=== PATIENT | female | born 1960 | race African-American/Black ===

== ENCOUNTER 2016-05-31 17:44 | Emergency (ER) | payer OTHER ==
[~2016-05-31] VITALS: Ht 167.6 cm; Wt 147.4 kg
[~2016-05-31 17:44] MED LIST: ASPIR 8181 MG PO; COZAAR50 MG ORAL; COZAAR50 MG PO; GLUCOPHAGE500 MG PO; HYDROCHLOROTHIA25 MG PO; IBUPROFEN600 MG PO; NORVASC5 MG PO; TYLENOL EXTRA500 MG ORAL
--- NOTE | 2016-05-31 18:23 | Emergency Room Report ---
History of Present Illness General Chief Complaint: Hypertension Source: Patient Present Illness HPI 28-year-old female complains of headache x3 days. States the pain is worse with muscle tension and upper shoulders that radiates up to her left side of her head it's worse with elevated blood pressure. Patient describes the pain as a crampy pressure-like sensation on the left side of her head with no photophobia photophobia blurry vision dizziness nausea or vomiting. States pain is also provoked by laying down at night. Since she has a history of high blood pressure that is normally well controlled with verapamil 240 taken once a day and hydrocortisone 25 mg. States she has an appointment with her primary care provider tomorrow morning. Allergies: Coded Allergies: IBUPROFEN (Unverified Adverse Reaction, HALLUCINATIONS, 08/03/12) Patient History Now: No Nursing Documentation-[facility] Past Medical History: No History, Except For Hx Hypertension: Yes Hx Diabetes: Yes - "borderline" Physical Exam Vital Signs Date Time Temp Pulse Resp B/P Pulse Ox O2 Delivery O2 Flow Rate FiO2 05/31/16 17:52 98.1 83 15 151/84 98 Room Air Sp02 EP Interpretation: reviewed, normal General Appearance: no apparent distress, alert, GCS 15, non-toxic Head: normocephalic, atraumatic Eyes: bilateral eye EOMI, bilateral eye PERRL, bilateral eye normal inspection ENT: hearing grossly normal, normal pharynx, no angioedema, normal voice, TMs + canals normal, uvula midline Neck: full range of motion, no bony tend, no carotid bruits, supple/symm/no masses Respiratory: chest non-tender, lungs clear, normal breath sounds, speaking full sentences Cardiovascular #1: regular rate, rhythm, no edema, no murmur, no rub, normal capillary refill Cardiovascular #2: 2+ carotid (R), 2+ carotid (L), 2+ radial (R), 2+ radial (L) , 2+ dorsalis pedis (R), 2+ dorsalis pedis (L) Musculoskeletal: back normal, digits/nails normal, gait/station normal, normal range of motion, non-tender, calf tenderness Neurologic: alert, oriented x3, responsive, 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 Tolbert is my supervising physician with whom patient management has been discussed with. Diagnostic Impression: Primary Impression: Episodic tension type headache Qualified Codes: G44.219 - Episodic tension-type headache, not intractable Additional Impression: Hypertension Qualified Codes: I10 - Essential (primary) hypertension ER Course Pt. presents to the ED c/o elevated BP and Headache Ddx considered but are not limited to Tension KRAFT, Migraine, Stroke, Meningitis, Subarachnoid Hemorrhage Vital signs: are WNL, pt. is afebrile H&PE are most consistent with Tension KRAFT ORDERS: none required at this time, the diagnosis is clinical ED INTERVENTIONS: None required at this time. DISCHARGE: At this time pt. is stable for d/c to home. Will provide printed patient care instructions, and any necessary prescriptions. Care plan and follow up instructions have been discussed with the patient prior to discharge. Last Vital Signs Date Time Temp Pulse Resp B/P Pulse Ox O2 Delivery O2 Flow Rate FiO2 05/31/16 18:01 83 15 Room Air 05/31/16 17:52 98.1 151/84 98 Disposition: HOME, SELF-CARE Condition: Stable Scripts Cyclobenzaprine Hcl* (FLEXERIL*) 10 Mg Tablet 10 MG ORAL QHS for 10 Days, #10 TAB Prov: SABBEL,TAMEEM P.A. 05/31/16 Naproxen* (NAPROSYN*) 500 Mg Tablet 500 MG ORAL TWICE A DAY for 10 Days, #20 TAB Prov: SABRY,TAMEEM P.A. 05/31/16 SABRY,TAMEEM P.A. May 31, 2016 18:23
[2016-05-31] MEDS ORDERED: NAPROSYN500 M1 ORAL (18:27)
[2016-05-31] MEDS ORDERED: CYCLOBENZAPRINE10 MG ORAL (18:27)
[2016-05-31 21:12] VITALS: BP 163/77
== END 2016-05-31 18:35 | disposition home or self-care (01) ==
LOC: EMR 18:25
DX: G44.219 Episodic tension-type headache, not intractable (principal); I10 Essential (primary) hypertension; R73.03 Prediabetes
CPT/HCPCS: 99282

== ENCOUNTER 2016-09-02 08:55 | Emergency (ER) | payer OTHER ==
[~2016-09-02] VITALS: Ht 167.6 cm; Wt 149.7 kg
[~2016-09-02 08:55] MED LIST changes: +CYCLOBENZAPRINE10 MG ORAL; +NAPROSYN500 M1 ORAL
--- NOTE | 2016-09-02 10:27 | Diagnostic Imaging Report ---
Indication: COUGH Technique: One view of the chest Comparison: 07/06/2012 Findings: Body habitus limits evaluation. Peripheral infiltrate is seen in the left mid and upper lung. The remainder lungs and pleural spaces are clear. Heart remains enlarged. Impression: Left mid and upper lung infiltrate.
[2016-09-02] MEDS ORDERED: cefTRIAXone 1 GM in NS 55 ML IVPB ONE (10:30)
[2016-09-02 10:55] LABS: BASOPHILS % (AUTO) 0.9 % (0.0-2.0); EOSINOPHILS % (AUTO) 1.4 % (0.0-3.0); LYMPHOCYTES % (AUTO) 28.3 % (20.0-45.0); MEAN CORPUSCULAR HGB CONC 30.4 G/DL (32.0-36.0); MEAN CORPUSCULAR VOLUME 79 FL (80-99); MEAN PLATELET VOLUME 8.4 FL (6.5-10.1); MONOCYTES % (AUTO) 7.5 % (1.0-10.0); NEUTROPHILS % (AUTO) 61.8 % (45.0-75.0); PLATELET COUNT 226 K/UL (150-450); RED BLOOD COUNT 5.65 M/UL (4.20-5.40); WHITE BLOOD COUNT 6.2 K/UL (4.8-10.8)
[2016-09-02 11:06] VITALS: BP 159/76
[2016-09-02 11:14] LABS: TROPONIN I < 0.30 ng/mL (<=0.30)
[2016-09-02 11:15] LABS: ALANINE AMINOTRANSFERASE 18 U/L (3-33); ALBUMIN/GLOBULIN RATIO 1.1 (1.0-2.7); ANION GAP 13 (5-15); ASPARTATE AMINO TRANSFERASE 23 U/L (5-40); CALCIUM 9.3 mg/dL (8.6-10.2); CARBON DIOXIDE 30 mEQ/L (20-30); CHLORIDE 95 mEQ/L (98-107); CREATININE 0.9 mg/dL (0.5-0.9); GLOMERULAR FILTRATION RATE > 60 mL/min (>60); HEMOLYSIS 19; POTASSIUM 3.4 mEQ/L (3.4-4.9); SODIUM 138 mEQ/L (135-145); TOTAL PROTEIN 6.8 g/dL (6.6-8.7)
[2016-09-02 11:25] LABS: CKMB 4.2 ng/mL (< 3.8)
[2016-09-02 12:41] VITALS: BP 139/82
--- NOTE | 2016-09-02 12:41 | Emergency Room Report ---
History of Present Illness General Chief Complaint: Upper Respiratory Illness Source: Patient Present Illness HPI This patient states that for the past week she has had ongoing cough and congestion. She states that she traveled to [place]. She states that her grandchildren were ill with a cough and since that time she has had worsening cough and congestion. She states that she has had brown-colored sputum. She denies fever or chills. She denies nausea or vomiting. She states she's also had intermittent chest pain. She denies abdominal pain. She has no other complaints. Allergies: Coded Allergies: IBUPROFEN (Unverified Adverse Reaction, HALLUCINATIONS, 08/03/12) Patient History Past Medical History: see triage record, DM, HTN, asthma Social History: Denies: alcohol use, drug use, smoking Reviewed Nursing Documentation: PMH: Agreed, PSxH: Agreed Nursing Documentation-PMH Past Medical History: No History, Except For Hx Hypertension: Yes Hx Asthma: Yes Hx Diabetes: Yes Review of Systems All Other Systems: negative except mentioned in HPI Physical Exam Vital Signs Date Time Temp Pulse Resp B/P Pulse Ox O2 Delivery O2 Flow Rate FiO2 09/02/16 09:05 97.2 79 18 169/76 94 Room Air Sp02 EP Interpretation: reviewed, normal General Appearance: no apparent distress, alert, GCS 15, non-toxic Head: normocephalic, atraumatic Eyes: bilateral eye PERRL, bilateral eye normal inspection ENT: hearing grossly normal, normal pharynx, no angioedema, normal voice Neck: full range of motion, supple/symm/no masses Respiratory: chest non-tender, lungs clear, normal breath sounds, speaking full sentences Cardiovascular #1: regular rate, rhythm, no edema Gastrointestinal: normal bowel sounds, non tender, soft, non-distended, no guarding, no rebound Rectal: deferred Musculoskeletal: back normal, gait/station normal, normal range of motion, non- tender Neurologic: alert, oriented x3, responsive, motor strength/tone normal, sensory intact, speech normal Psychiatric: judgement/insight normal, memory normal, mood/affect normal, no suicidal/homicidal ideation Skin: normal color, no rash, warm/dry, well hydrated Medical Decision Making Diagnostic Impression: Primary Impression: Pneumonia ER Course This patient presents with multilobar pneumonia. Patient is well appearing overall with a normal oxygen saturation and no respiratory distress. Which are workup is unremarkable to include CBC, CMP and cardiac enzymes. I did give the patient one dose of IV antibiotics here in the emergency department. I did offer the patient admission to the hospital, however, she states that she feels very well and did not feel that is necessary. She would rather not. Although I did not make this patient signed out AGAINST MEDICAL ADVICE, I did caution her to return for worsening symptoms as she does have a multilobar pneumonia. There is no evidence of congestive heart failure or acute coronary syndrome at this time. The patient was given close return precautions and followup instructions. Labs Test 09/02/16 10:45 White Blood Count 6.2 K/UL (4.8-10.8) Red Blood Count 5.65 M/UL (4.20-5.40) Hemoglobin 13.5 G/DL (12.0-16.0) Hematocrit 44.6 % (37.0-47.0) Mean Corpuscular Volume 79 FL (80-99) Mean Corpuscular Hemoglobin 24.0 PG (27.0-31.0) Mean Corpuscular Hemoglobin Concent 30.4 G/DL (32.0-36.0) Red Cell Distribution Width 14.0 % (11.6-14.8) Platelet Count 226 K/UL (150-450) Mean Platelet Volume 8.4 FL (6.5-10.1) Neutrophils (%) (Auto) 61.8 % (45.0-75.0) Lymphocytes (%) (Auto) 28.3 % (20.0-45.0) Monocytes (%) (Auto) 7.5 % (1.0-10.0) Eosinophils (%) (Auto) 1.4 % (0.0-3.0) Basophils (%) (Auto) 0.9 % (0.0-2.0) Sodium Level 138 mEQ/L (135-145) Potassium Level 3.4 mEQ/L (3.4-4.9) Chloride Level 95 mEQ/L (98-107) Carbon Dioxide Level 30 mEQ/L (20-30) Anion Gap 13 (5-15) Blood Urea Nitrogen 10 mg/dL (7-23) Creatinine 0.9 mg/dL (0.5-0.9) Estimat Glomerular Filtration Rate > 60 mL/min (>60) Glucose Level 234 mg/dL (74-106) Calcium Level 9.3 mg/dL (8.6-10.2) Total Bilirubin 0.2 mg/dL (0.0-1.2) Aspartate Amino Transf (AST/SGOT) 23 U/L (5-40) Alanine Aminotransferase (ALT/SGPT) 18 U/L (3-33) Alkaline Phosphatase 52 U/L (35-104) Total Creatine Kinase 320 U/L (26-140) Creatine Kinase MB 4.2 ng/mL (< 3.8) Creatine Kinase MB Relative Index 1.3 Troponin I < 0.30 ng/mL (<=0.30) Pro-B-Type Natriuretic Peptide 33 pg/mL (0-125) Total Protein 6.8 g/dL (6.6-8.7) Albumin 3.6 g/dL (3.5-5.2) Globulin 3.2 g/dL Albumin/Globulin Ratio 1.1 (1.0-2.7) EKG Diagnostic Results Rate: normal Rhythm: NSR ST Segments: no acute changes Rhythm Strip Diag. Results EP Interpretation: yes Rate: 70's Rhythm: NSR, no PVC's, no ectopy Chest X-Ray Diagnostic Results EP Interpretation: No Findings: no effusion, no pneumothorax Number of Views: 1 Other Impression LML and NATE opacity Last Vital Signs Date Time Temp Pulse Resp B/P Pulse Ox O2 Delivery O2 Flow Rate FiO2 09/02/16 11:06 73 18 159/76 96 Room Air 09/02/16 09:05 97.2 Status: improved Disposition: HOME, SELF-CARE Condition: Improved Referrals: [facility],REFERRING (PCP) TON QUINTERO D.O. Sep 02, 2016 12:41
[2016-09-02] MEDS ORDERED: LEVAQUIN750 MG ORAL (12:42)
[2016-09-02 13:13] VITALS: BP 139/82
--- NOTE | 2016-09-07 22:45 | Cardiology Report ---
APPROVED REPORT EKG Measurement Heart [id number] Normal sinus rhythm with sinus arrhythmia Left axis deviation Abnormal ECG
== END 2016-09-02 13:15 | disposition home or self-care (01) ==
LOC: EMR 09:26
DX: J18.9 Pneumonia, unspecified organism (principal); I10 Essential (primary) hypertension; E11.9 Type 2 diabetes mellitus without complications; J45.909 Unspecified asthma, uncomplicated; Z88.6 Allergy status to analgesic agent
CPT/HCPCS: 36415; 71010; 80053; 82550; 82553; 83880; 84484; 85025; 93005; 96374; 99284; J0696

== ENCOUNTER 2016-12-17 05:00 | Emergency (ER) | payer OTHER ==
[~2016-12-17] VITALS: Ht 167.6 cm; Wt 145.1 kg
[~2016-12-17 05:00] MED LIST changes: +LEVAQUIN750 MG ORAL
--- NOTE | 2016-12-17 05:11 | Emergency Room Report ---
History of Present Illness General Chief Complaint: Dizziness Source: Patient, EMS (DONALDO SHERMAN M.D.) Present Illness HPI This is a 56-year-old female with history hypertension diabetes. She presents with chief complaint of dizziness. Onset was acute. Occurred about an hour ago. She said she just got off her for work and then felt room spinning. She felt nauseous and vomiting. Never had this problem before. No fever or chills. No chest pain. No focal deficit. No recent viral illness. 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 (DONALDO SHERMAN M.D.) Review of Systems Eye: Denies: blurred vision, eye pain ENT: Denies: ear pain, nose congestion, throat swelling Respiratory: Denies: cough, shortness of breath Cardiovascular: Denies: chest pain, palpitations Gastrointestinal: Denies: abdominal pain, diarrhea, nausea, vomiting Musculoskeletal: Denies: back pain, joint pain Skin: Denies: rash Neurological: Denies: headache, numbness Endocrine: Denies: increased thirst, increased urine Hematologic/Lymphatic: Denies: easy bruising All Other Systems: negative except mentioned in HPI (DONALDO SHERMAN M.D.) Physical Exam Vital Signs Date Time Temp Pulse Resp B/P Pulse Ox O2 Delivery O2 Flow Rate FiO2 12/17/16 05:02 97.0 72 16 143/84 99 Room Air vitals normal except for mild hypertension Sp02 EP Interpretation: reviewed, normal General Appearance: well appearing, no apparent distress, alert, obese Head: normocephalic, atraumatic Eyes: bilateral eye EOMI, bilateral eye PERRL ENT: hearing grossly normal, normal pharynx Neck: full range of motion, supple, no meningismus Respiratory: chest non-tender, lungs clear, normal breath sounds Cardiovascular #1: regular rate, rhythm, no murmur Gastrointestinal: normal bowel sounds, non tender, no mass, no organomegaly, no bruit, non-distended Musculoskeletal: back normal, gait/station normal, normal range of motion Psychiatric: mood/affect normal Skin: warm/dry (DONALDO SHERMAN M.D.) Medical Decision Making Diagnostic Impression: Primary Impression: Vertigo Additional Impressions: Unable to ambulate Morbid obesity with BMI of 50.0-59.9, adult ER Course Patient presents with symptoms consistent with vertigo. No focal deficit to indicate TIA or CVA. She was better until she went for CAT scan. The movement cause her to have more symptom. Labs are still pending. CT is negative. I will sign this patient out to Dr. Tabor for final disposition. (DONALDO SHERMAN M.D.) ER Course Patient was signed out to me for final disposition. I have reevaluated patient. Unfortunately patient is unable to ambulate despite medications. Patient is still severely vertiginous. Therefore felt the patient require admission for further workup. Case was discussed with Dr. Diggs at [facility]. Patient will be transferred for further treatment. Patient is stable for transfer. Patient has normal vital signs. CT did not show any evidence of intracranial injury. Labs Test 12/17/16 05:20 White Blood Count 6.5 K/UL (4.8-10.8) Red Blood Count 6.07 M/UL (4.20-5.40) Hemoglobin 14.7 G/DL (12.0-16.0) Hematocrit 48.5 % (37.0-47.0) Mean Corpuscular Volume 80 FL (80-99) Mean Corpuscular Hemoglobin 24.2 PG (27.0-31.0) Mean Corpuscular Hemoglobin Concent 30.4 G/DL (32.0-36.0) Red Cell Distribution Width 13.9 % (11.6-14.8) Platelet Count 234 K/UL (150-450) Mean Platelet Volume 8.6 FL (6.5-10.1) Neutrophils (%) (Auto) 45.0 % (45.0-75.0) Lymphocytes (%) (Auto) 41.7 % (20.0-45.0) Monocytes (%) (Auto) 10.1 % (1.0-10.0) Eosinophils (%) (Auto) 1.3 % (0.0-3.0) Basophils (%) (Auto) 1.9 % (0.0-2.0) Urine Color Pale yellow Urine Appearance Clear Urine pH 5 (4.5-8.0) Urine Specific [place] 1.020 (1.005-1.035) Urine Protein Negative (NEGATIVE) Urine Glucose (UA) Negative (NEGATIVE) Urine Ketones Negative (NEGATIVE) Urine Occult Blood 1+ (NEGATIVE) Urine Nitrite Negative (NEGATIVE) Urine Bilirubin Negative (NEGATIVE) Urine Urobilinogen Normal MG/DL (0.0-1.0) Urine Leukocyte Esterase Negative (NEGATIVE) Urine RBC 0-2 /HPF (0 - 2) Urine WBC 0-2 /HPF (0 - 2) Urine Squamous Epithelial Cells Moderate /LPF (NONE/OCC) Urine Bacteria Occasional /HPF (NONE) Sodium Level 138 mEQ/L (135-145) Potassium Level 4.0 mEQ/L (3.4-4.9) Chloride Level 98 mEQ/L (98-107) Carbon Dioxide Level 25 mEQ/L (20-30) Anion Gap 15 (5-15) Blood Urea Nitrogen 15 mg/dL (7-23) Creatinine 0.7 mg/dL (0.5-0.9) Estimat Glomerular Filtration Rate > 60 mL/min (>60) Glucose Level 164 mg/dL (74-106) Calcium Level 9.9 mg/dL (8.6-10.2) (LÓPEZ TABOR M.D.) Rhythm Strip Diag. Results Rhythm Strip Time: 05:58 EP Interpretation: yes Rate: 80 Rhythm: NSR (DONALDO SHERMAN M.D.) CT/MRI/US Diagnostic Results CT/MRI/US Diagnostic Results : Imaging Test Ordered: CT head Impression negative per radiologist (DONALDO SHERMAN M.D.) Last Vital Signs Date Time Temp Pulse Resp B/P Pulse Ox O2 Delivery O2 Flow Rate FiO2 12/17/16 05:02 97.0 72 16 143/84 99 Room Air Status: improved (DONALDO SHERMAN M.D.) Disposition: XFER SHT-TRM HOSP Condition: Serious Scripts Meclizine Hcl* (MECLIZINE*) 25 Mg Tablet 50 MG ORAL THREE TIMES A DAY, #30 TAB Prov: DONALDO SHERMAN M.D. 12/17/16 Patient Instructions: Vertigo Additional Instructions: Followup with your Dr. in 3 days. Return if symptom worsen. DONALDO SHERMAN M.D. Dec 17, 2016 05:11 LÓPEZ TABOR M.D. Dec 17, 2016 10:52
[2016-12-17 05:32] LABS: BASOPHILS % (AUTO) 1.9 % (0.0-2.0); EOSINOPHILS % (AUTO) 1.3 % (0.0-3.0); LYMPHOCYTES % (AUTO) 41.7 % (20.0-45.0); MEAN CORPUSCULAR HEMOGLOBIN 24.2 PG (27.0-31.0); MEAN CORPUSCULAR HGB CONC 30.4 G/DL (32.0-36.0); MEAN CORPUSCULAR VOLUME 80 FL (80-99); MEAN PLATELET VOLUME 8.6 FL (6.5-10.1); MONOCYTES % (AUTO) 10.1 % (1.0-10.0); PLATELET COUNT 234 K/UL (150-450); RED BLOOD COUNT 6.07 M/UL (4.20-5.40); RED CELL DISTRIBUTION WIDTH 13.9 % (11.6-14.8); WHITE BLOOD COUNT 6.5 K/UL (4.8-10.8)
[2016-12-17 05:47] LABS: APPEARANCE,URINE CLEAR; KETONES,URINE NEGATIVE (NEGATIVE); LEUKOCYTE ESTERASE ,URINE NEGATIVE (NEGATIVE); NITRITE,URINE NEGATIVE (NEGATIVE); PH,URINE 5 (4.5-8.0); PROTEIN,URINE NEGATIVE (NEGATIVE); UROBILINOGEN,URINE NORMAL MG/DL (0.0-1.0)
[2016-12-17 05:48] LABS: ANION GAP 15 (5-15); CALCIUM 9.9 mg/dL (8.6-10.2); CARBON DIOXIDE 25 mEQ/L (20-30); CHLORIDE 98 mEQ/L (98-107); CREATININE 0.7 mg/dL (0.5-0.9); GLOMERULAR FILTRATION RATE > 60 mL/min (>60); HEMOLYSIS 19; SODIUM 138 mEQ/L (135-145)
[2016-12-17] MEDS ORDERED: LORazepam Inj 2mg/ml 1ml ONE (05:58)
[2016-12-17] MEDS ORDERED: GLIPIZIDE5 MG ORAL (05:59)
[2016-12-17] MEDS ORDERED: VERAPAMIL ER240 MG ORAL (05:59)
[2016-12-17] MEDS: LORazepam Inj 2mg/ml 1ml IV ONE (06:00)
[2016-12-17] MEDS ORDERED: MECLIZINE HCL25 MG ORAL (06:05)
[2016-12-17 06:09] LABS: BACTERIA,URINE OCCASIONAL /HPF; RBC,URINE 0-2 /HPF (0 - 2); SQUAMOUS EPITHELIAL CELL,UR MODERATE /LPF (NONE/OCC); WBC,URINE 0-2 /HPF (0 - 2)
[2016-12-17 06:56] VITALS: BP 166/81
[2016-12-17 07:25] VITALS: BP 163/88
[2016-12-17] MEDS: Meclizine 25mg tab ORAL ONE (09:31)
--- NOTE | 2016-12-17 10:27 | Diagnostic Imaging Report ---
Indications: Dizziness Technique: Continuous helical CT imaging of the brain was performed with automatic exposure control on a Siemens sensation [address] scanner. Axial and coronal images were reconstructed at 5 mm slice thickness and interval. CTDI volume(s): 70 mGy Total DLP: 1442 mGy-cm Findings: Comparison: 08/03/12 Intracranial anatomy veins unremarkable. No evidence of mass or hemorrhage, other attenuation abnormality, mass effect, midline shift, hydrocephalus or increased intracranial pressure. Bone window images are unremarkable. Visualized paranasal sinuses and mastoid air cells are clear. IMPRESSION: Negative noncontrast CT scan of the brain , unchanged. Early/subtle acute abnormalities may be missed, however. If clinically indicated, MRI of the brain without and with gadolinium may be of benefit in further evaluation. This correlates with [facility] preliminary report. The CT scanner at [facility] is accredited by the [employer] and the scans are performed using protocols designed to limit radiation exposure to as low as reasonably achievable to attain images of sufficient resolution adequate for diagnostic evaluation.
[2016-12-17 10:38] VITALS: BP 152/93
[2016-12-17 10:42] VITALS: BP 152/93
== END 2016-12-17 10:42 | disposition short-term general hospital (02) ==
LOC: EDBD 05:00 → EDUNIT# 05:00 → EMR 05:12
DX: R42 Dizziness and giddiness (principal); E11.9 Type 2 diabetes mellitus without complications; J45.909 Unspecified asthma, uncomplicated; I10 Essential (primary) hypertension; Z88.6 Allergy status to analgesic agent
CPT/HCPCS: 36415; 70450; 80048; 81001; 85025; 96374; 96375; 99285; J2405